=== PATIENT | male | born 1960 | race Caucasian/White ===

== ENCOUNTER 2020-05-05 11:44 | Outpatient (REF) | payer BC, SELFPAY ==
[2020-05-05 13:45] LABS: MANUAL DIFF FLAG NO
[2020-05-05 14:09] LABS: Basophils Absolute Auto 0.1 X10*3/uL (0.0-0.2); Eosinophils Absolute Auto 0.5 X10*3/uL (0.0-0.4); Eosinophils Percent Auto 9.6 % (0-4); Hematocrit 43.4 % (42-52); Hemoglobin 14.4 g/dl (14.0-18.0); Imm Gran Abs Auto 0.02 X10*3/uL (0.00-0.03); Imm Gran Pct Auto 0.4 % (0.0-0.4); Lymphocytes Absolute Auto 1.1 X10*3/uL (1.2-4.9); Lymphocytes Percent Auto 21.5 % (20-40); Mean Corpuscular HGB Conc 33.2 g/dl (31.0-36.0); Mean Corpuscular Hemoglobin 31.3 pg (27.0-33.0); Mean Corpuscular Volume 94.3 fL (80-98); Mean Platelet Volume 9.4 fL (9.4-12.4); Monocytes Absolute Auto 0.8 X10*3/uL (0.1-1.2); Monocytes Percent Auto 16.7 % (2-11); Neutrophils Absolute Auto 2.5 X10*3/uL (2.0-8.3); Neutrophils Percent Auto 50.8 % (45-73); Platelet Count 230 X10*3/uL (160-400); Red Cell Distribution Width 12.6 % (11.0-16.0)
[2020-05-05 14:11] LABS: Alanine Aminotransferase 17 U/L (0-40); Albumin Level 3.6 g/dL (3.5-5.0); Alkaline Phosphatase 59 U/L (39-117); Aspartate Amino Transferase 17 U/L (5-37); Bilirubin Direct 0.2 mg/dL (0.0-0.5); Bilirubin Total 0.3 mg/dL (0.0-1.0); C Reactive Protein 2.93 mg/dL (< or = 0.50); Total Protein 5.8 g/dL (6.5-8.0)
[2020-05-05 14:46] LABS: Erythrocyte Sedimentation Rate 3 MM/HR (0-15)
== END 2020-05-05 11:45 | disposition home or self-care (01) ==
LOC: HO.10HDL 11:44
PROVIDERS: Visit Provider Internal Medicine
DX: K51.50 Left sided colitis without complications (principal)
CPT/HCPCS: 36415; 80076; 85025; 85652; 86140

== ENCOUNTER 2020-05-07 09:20 | Outpatient (REF) | payer BC, SELFPAY ==
[2020-05-07 10:24] LABS: CDIFF Ag Positive (Negative); CDIFF Internal ctrl Dots and bkg OK (V); CDiff Toxin Negative (Negative)
[2020-05-07 11:43] LABS: CDiff Gene PCR NEGATIVE (Negative)
[2020-05-07 13:03] LABS: Leukocytes Stool Qualitative MANY: >10/OIF (NEGATIVE)
== END 2020-05-07 09:21 | disposition home or self-care (01) ==
LOC: HO.LNP 09:20
PROVIDERS: Visit Provider Internal Medicine
DX: K51.50 Left sided colitis without complications (principal)
CPT/HCPCS: 87045; 87046; 87077; 87324; 87449; 87493; 89055

== ENCOUNTER 2020-05-14 08:21 | Outpatient (REF) | payer BC, SELFPAY ==
[2020-05-14 09:36] LABS: CDIFF Ag Positive (Negative); CDIFF Internal ctrl Dots and bkg OK (V); CDiff Toxin Negative (Negative)
[2020-05-14 11:07] LABS: CDiff Gene PCR NEGATIVE (Negative)
== END 2020-05-14 08:22 | disposition home or self-care (01) ==
LOC: HO.LNP 08:21
PROVIDERS: Visit Provider Internal Medicine
DX: R19.7 Diarrhea, unspecified (principal)
CPT/HCPCS: 87324; 87449; 87493